=== PATIENT | female | born 1965 | race Caucasian/White ===

== ENCOUNTER → 2020-09-06 | Outpatient (CLI) | payer OTHER | LOC: KOH-I 10:17 | DX: R91.8 Other nonspecific abnormal finding of lung field (principal); R05 Cough | CPT/HCPCS: 71250 ==

== ENCOUNTER → 2022-02-03 | Outpatient (CLI) | payer OTHER | LOC: HEART 5 13:54 | DX: J45.909 Unspecified asthma, uncomplicated (principal); R06.02 Shortness of breath | CPT/HCPCS: 94060; 94729; 95012 ==

== ENCOUNTER → 2022-02-16 | Outpatient (CLI) | payer OTHER | LOC: CT 02-13 10:30 | DX: R93.89 Abnormal findings on diagnostic imaging of other specified body structures (principal); R06.00 Dyspnea, unspecified | CPT/HCPCS: ECHO; 71250; 93306 ==